=== PATIENT | male | born 1990 | race African-American/Black ===

== ENCOUNTER 2018-12-09 20:06 | Emergency (ER) | payer OTHER ==
[~2018-12-09] VITALS: Ht 167.6 cm; Wt 85.3 kg
[2018-12-09 20:16] VITALS: BP 150/90
[2018-12-09] MEDS ORDERED: METHOCARBAMOL500 M2 PO (22:50)
[2018-12-09] MEDS ORDERED: NAPROSYN500 MG PO (22:50)
== END 2018-12-09 23:02 | disposition home or self-care (01) ==
LOC: ER 20:06
DX: S29.012A Strain of muscle and tendon of back wall of thorax, initial encounter (principal); V43.53XA Car driver injured in collision with pick-up truck in traffic accident, initial encounter; Y93.89 Activity, other specified; Y92.488 Other paved roadways as the place of occurrence of the external cause; Y99.8 Other external cause status

== ENCOUNTER 2018-12-12 13:07 | Emergency (ER) | payer OTHER ==
[~2018-12-12] VITALS: Ht 167.6 cm; Wt 85.3 kg
[~2018-12-12 13:07] MED LIST: METHOCARBAMOL500 M2 PO; NAPROSYN500 MG PO
[2018-12-12 13:14] VITALS: BP 129/78
== END 2018-12-12 14:01 | disposition home or self-care (01) ==
LOC: ER 13:07
DX: S61.011A Laceration without foreign body of right thumb without damage to nail, initial encounter (principal); W26.8XXA Contact with other sharp object(s), not elsewhere classified, initial encounter; Y93.89 Activity, other specified; Y92.89 Other specified places as the place of occurrence of the external cause; Y99.8 Other external cause status